=== PATIENT | female | born 1935 | race American Indian/Alaskan Native ===

== ENCOUNTER 2017-02-14 15:58 | Emergency (ER) | payer MEDICARE ==
[2017-02-14 16:38] VITALS: O2SAT 100
--- NOTE | 2017-02-14 17:56 | C.PDOC ---
History Of Present Illness 81 year old patient, with a past medical history of hypertension and diabetes, presents to the ED complaining of pain to her right arm pain after a fall prior to arrival. Patient was on a school playground picking up her grand kids when someone bumped into her from the back. Patient fell on her right side. She has some left knee pain, but has been able to ambulate with her cane as she normally does. Patient denies any head injury, abdominal pain, neck pain, back pain, chest pain, nausea, or vomiting. - HPI Time Seen by Provider: 02/14/17 16:07 Chief Complaint (Nursing): Trauma History Per: Patient History/Exam Limitations: no limitations Onset/Duration Of Symptoms: Mins (prior to arrival) Severity: Mild Pain Scale Rating Of: 3 Recent travel outside of the [place]: No Past Medical History Reviewed: Historical Data, Nursing Documentation, Vital Signs Vital Signs: Last Vital Signs Temp 98 F 02/14/17 16:32 Pulse 80 02/14/17 16:32 Resp 20 02/14/17 16:32 BP 141/65 02/14/17 16:32 Pulse Ox 100 02/14/17 18:22 - Medical History PMH: Diabetes, HTN Surgical History: Cholecystectomy Family History: States: Unknown Family Hx - Social History Hx Tobacco Use: No Hx Alcohol Use: No Hx Substance Use: No - Immunization History Hx Tetanus Toxoid Vaccination: Yes Hx Influenza Vaccination: Yes Hx Pneumococcal Vaccination: Yes Review Of Systems Except As Marked, All Systems Reviewed And Found Negative. Cardiovascular: Negative for: Chest Pain Gastrointestinal: Negative for: Nausea, Vomiting, Abdominal Pain Musculoskeletal: Negative for: Neck Pain, Back Pain Neurological: Negative for: Other (head injury) Physical Exam - Physical Exam Appears: Non-toxic, No Acute Distress, Other (Kyphosis) Skin: Warm, Dry Head: Atraumatic, Normacephalic Neck: Normal ROM, No Midline Cervical Tenderness, Supple Chest: Symmetrical Cardiovascular: Rhythm Regular Respiratory: Normal Breath Sounds, No Accessory Muscle Use, No Rales, No Rhonchi , No Wheezing Gastrointestinal/Abdominal: Soft, No Tenderness Back: Normal Inspection, No CVA Tenderness Extremity: Normal ROM, Tenderness (left knee; consistent with arthritis), No Deformity, No Swelling, Other (tenderness to right humerus and elbow) Neurological/Psych: Oriented x3, Normal Speech, Normal Cognition Gait: With Assistance ED Course And Treatment O2 Sat by Pulse Oximetry: 100 (room air) Pulse Ox Interpretation: Normal Progress Note: Plan: -Right elbow x-ray. -Right humerus x-ray. -Tylenol Disposition Counseled Patient/Family Regarding: Studies Performed, Diagnosis - Disposition Disposition: HOME/ ROUTINE Disposition Time: 18:21 Condition: STABLE Additional Instructions: follow up with your doctor. return to the Emergency Department with any further concerns Instructions: Contusion in Adults (ED) - POA Present On Arrival: None - Clinical Impression Clinical Impression: Contusion - Scribe Statement The provider has reviewed the documentation as recorded by the Scribe Joanie Coker Provider Attestation: All medical record entries made by the Scribe were at my direction and personally dictated by me. I have reviewed the chart and agree that the record accurately reflects my personal performance of the history, physical exam, medical decision making, and the department course for this patient. I have also personally directed, reviewed, and agree with the discharge instructions and disposition.
--- NOTE | 2017-02-14 18:23 | RAD ---
PROCEDURE: Radiographs of the right humerus. HISTORY: fall COMPARISON: None available. FINDINGS: BONES: No acute displaced fracture. Osseous demineralization. Degenerative changes. SOFT TISSUES: Unremarkable. No evidence of radiopaque foreign body. OTHER FINDINGS: None. IMPRESSION: No acute displaced fracture identified. Osseous demineralization. Degenerative changes.
--- NOTE | 2017-02-14 18:24 | RAD ---
PROCEDURE: Radiographs of the right elbow. HISTORY: fall COMPARISON: None available. FINDINGS: BONES: Osseous demineralization. Degenerative changes. No acute displaced fracture identified. Well corticated ossific density adjacent to the lateral distal humerus, consistent with chronic finding. JOINTS: No dislocation. SOFT TISSUES: Mild soft tissue swelling. No evidence of radiopaque foreign body. JOINT EFFUSION: No significant joint effusion. OTHER FINDINGS: None IMPRESSION: Soft tissue swelling. No acute displaced fracture identified. If high clinical index of suspicion for occult fracture, cross-sectional imaging suggested. Osseous demineralization. Degenerative changes.
[2017-02-14 18:41] VITALS: BP 136/64; PULSE 79; RESP 18; TEMP 98.1
== END 2017-02-14 18:40 | disposition home or self-care (01) ==
LOC: C.ER 15:58
DX: S40.021A Contusion of right upper arm, initial encounter (principal); W03.XXXA Other fall on same level due to collision with another person, initial encounter; Y92.219 Unspecified school as the place of occurrence of the external cause

== ENCOUNTER 2017-06-08 22:49 | Emergency (ER) | payer MEDICARE ==
[2017-06-08 23:08] VITALS: RESP 17; TEMP 98.7
[2017-06-08 23:17] LABS: BASO % 0.2 % (0.0-2.0); EOS % 0.4 % (0.0-4.0); HEMATOCRIT 26.8 % (34.0-47.0); LYMPH % 18.2 % (20.0-40.0); MEAN CELL VOLUME 80.3 fL (81.0-99.0); MEAN CORPUSCULAR HEMOGLOBIN 26.9 pg (27.0-31.0); MEAN CORPUSCULAR HGB CONC 33.5 g/dL (33.0-37.0); MEAN PLATELET VOLUME 7.8 fL (7.2-11.7); MONO # 0.9 K/uL (0.0-0.8); MONO % 16.1 % (0.0-10.0); NRBC % 0.1 % (0.0-2.0); RED CELL DISTRIBUTION WIDTH 14.4 % (11.5-14.5); WHITE BLOOD COUNT 5.8 K/uL (4.8-10.8)
--- NOTE | 2017-06-08 23:18 | C.PDOC ---
History Of Present Illness 81 year old female with a Hx of diabetes, currently on metformin and glucozide, presents to the ER after being found hypoglycemic with a blood sugar of 35. Patient states she has not been feeling well over the past few days, she reports having chills on and today she had a questionable syncopal episode, felt nauseated, lightheaded, and noticed some slurring of her speech. Patient called medics for an evaluation and was found awake and responsive, but with poor blood sugar. Patient was given 1/2 an amp of d50 and on arrival patient's blood sugar is 135. Patient states she feels better and notes she did not eat today due to lack of appetite but did take her medications today. Denies SOB, chest pain, headache, or abdominal pain. Time Seen by Provider: 06/08/17 23:04 Chief Complaint (Nursing): Altered Mental Status History Per: Patient History/Exam Limitations: None Onset/Duration Of Symptoms: Hrs Current Symptoms Are (Timing): Still Present Usual Baseline: Alert Oriented Exacerbating Factor(s): Unknown Speech Is: Normal Recent travel outside of the [facility]: No Associated Symptoms: denies: Fever, Chills, Chest Pain, Headache, Vomiting, Dyspnea, Syncope Past Medical History Reviewed: Historical Data, Nursing Documentation, Vital Signs Vital Signs: Last Vital Signs Temp 98.7 F 06/08/17 23:06 Pulse 81 06/08/17 23:06 Resp 17 06/08/17 23:06 BP 117/64 06/08/17 23:06 Pulse Ox 99 06/08/17 23:24 - Medical History PMH: Diabetes, HTN Surgical History: Cholecystectomy Family History: States: Unknown Family Hx - Social History Hx Tobacco Use: No Hx Alcohol Use: No Hx Substance Use: No - Immunization History Hx Tetanus Toxoid Vaccination: Yes Hx Influenza Vaccination: Yes Hx Pneumococcal Vaccination: Yes Review Of Systems Constitutional: Negative for: Fever, Chills Eyes: Negative for: Vision Change Cardiovascular: Positive for: Light Headedness. Negative for: Chest Pain, Palpitations Respiratory: Negative for: Shortness of Breath Gastrointestinal: Positive for: Nausea. Negative for: Vomiting, Abdominal Pain , Diarrhea Genitourinary: Negative for: Dysuria, Hematuria Neurological: Negative for: Weakness, Numbness, Headache, Dizziness Physical Exam - Physical Exam Appears: Non-toxic, No Acute Distress Skin: Normal Color, Warm, Dry Head: Atraumatic, Normacephalic Oral Mucosa: Moist Neck: Normal, Supple Chest: Symmetrical, No Tenderness Cardiovascular: Rhythm Regular, No Murmur Respiratory: Normal Breath Sounds, No Rales, No Rhonchi, No Wheezing Gastrointestinal/Abdominal: Soft, No Tenderness Neurological/Psych: Oriented x3, Normal Speech, Normal Cognition, Other (No focal deficits) ED Course And Treatment - Laboratory Results Result Diagrams: 06/08/17 23:14 06/08/17 23:14 Lab Interpretation: Abnormal (BUN 18, Cr 1.7, glucose 114, Hgb 9.0) ECG: Interpreted By Me ECG Rhythm: Sinus Rhythm (with LVH) O2 Sat by Pulse Oximetry: 99 (Room air) Pulse Ox Interpretation: Normal Progress Note: Blood work and urinalysis ordered. - Physician Consult Information Time Consulting Physician Contacted: 23:35 Physician Contacted: Anay Long Outcome Of Conversation: Patient instructed to stop her diabetic medications and she will see her in the office in 2 days. Disposition - Disposition Disposition Time: 23:36 Condition: IMPROVED Forms: [employer] (Serbian) - Clinical Impression Clinical Impression: Hypoglycemia associated with diabetes - Scribe Statement The provider has reviewed the documentation as recorded by the Scribe Jack Chamberlain All medical record entries made by the Scribe were at my direction and personally dictated by me. I have reviewed the chart and agree that the record accurately reflects my personal performance of the history, physical exam, medical decision making, and the department course for this patient. I have also personally directed, reviewed, and agree with the discharge instructions and disposition. Physician Patient Turnover Patient Signed Over To: Ciro Florez Handoff Comments: pending labs
[2017-06-08 23:27] LABS: POTASSIUM 3.8 mmol/L (3.6-5.2)
[2017-06-08 23:29] LABS: BILIRUBIN,TOTAL 0.7 mg/dL (0.2-1.3); TOTAL PROTEIN 7.5 g/dL (6.3-8.3)
[2017-06-08 23:30] LABS: CALCIUM 8.4 mg/dl (8.6-10.4)
[2017-06-09 01:04] VITALS: BP 132/65; PULSE 79; O2SAT 97
--- NOTE | 2017-06-19 18:47 | CARD ---
APPROVED REPORT EKG Measurement Heart [id number] <Conclusion> Normal sinus rhythm Minimal voltage criteria for LVH, may be normal variant Borderline ECG
== END 2017-06-09 01:03 | disposition home or self-care (01) ==
LOC: C.ER 22:49
DX: E11.649 Type 2 diabetes mellitus with hypoglycemia without coma (principal); Z79.84 Long term (current) use of oral hypoglycemic drugs

== ENCOUNTER 2018-02-06 14:09 | Emergency (ER) | payer MEDICARE ==
[2018-02-06 14:16] VITALS: PULSE 80; RESP 18; TEMP 98.5; O2SAT 100
--- NOTE | 2018-02-06 14:33 | C.PDOC ---
History Of Present Illness 82-YEAR-OLD FEMALE, PRESENTS TO THE EMERGENCY DEPARTMENT WITH COMPLAINTS OF HAVING RIGHT SECOND TOE PAIN ONGOING FOR "A LONG TIME/" PS SOMETIMES IT HURTS W MOVEMENT. SHE DENIES WORSENING SX, DENIES TRAUMA EXAM SHE HAS A THICKENED TOENAIL, R SECOND TOE Time Seen by Provider: 02/06/18 14:30 Chief Complaint (Nursing): Lower Extremity Problem/Injury History Per: Patient History/Exam Limitations: no limitations Onset/Duration Of Symptoms: Days Past Medical History Reviewed: Historical Data, Nursing Documentation, Vital Signs Vital Signs: Last Vital Signs Temp 98.5 F 02/06/18 14:13 Pulse 80 02/06/18 14:13 Resp 18 02/06/18 14:13 BP 158/72 H 02/06/18 14:13 Pulse Ox 100 02/06/18 15:17 - Medical History PMH: Diabetes, HTN Surgical History: Cholecystectomy Family History: States: No Known Family Hx - Social History Hx Tobacco Use: No Hx Alcohol Use: No Hx Substance Use: No - Immunization History Hx Tetanus Toxoid Vaccination: Yes Hx Influenza Vaccination: Yes Hx Pneumococcal Vaccination: Yes Review Of Systems Constitutional: Negative for: Fever Musculoskeletal: Positive for: Other (RIGHT TOE) Neurological: Negative for: Weakness, Numbness Physical Exam - Physical Exam Appears: Well, Non-toxic, No Acute Distress Skin: Normal Color, Warm, Dry, No Rash Extremity: Capillary Refill (<2 SECONDS), No Deformity, Other (THICKENED TOENAIL TO RIGHT SECOND TOE) Pulses: Left Dorsalis Pedis: Normal, Right Dorsalis Pedis: Normal Neurological/Psych: Oriented x3, Normal Speech ED Course And Treatment O2 Sat by Pulse Oximetry: 100 (RA) Pulse Ox Interpretation: Normal Progress - Re-Evaluation Re-evaluation Note: 02/06/18 14:41 d/w PODIATRY RESIDENT, WILL EVALUATE PT IN ED. 02/06/18 16:04 S/P EVAL, CLEARED FOR OUTPT FU - Data Reviewed Data Reviewed: Diagnostic imaging Disposition Counseled Patient/Family Regarding: Studies Performed, Diagnosis, Need For Followup - Disposition Referrals: Elissa Baca DPM [Staff Provider] - Disposition: HOME/ ROUTINE Disposition Time: 16:06 Condition: GOOD Instructions: Hammer Toe (DC) Forms: [employer] (Persian) - Clinical Impression Clinical Impression: Chronic toe pain, right foot - Scribe Statement The provider has reviewed the documentation as recorded by the Scribe (Kanika Dumont) All medical record entries made by the Scribe were at my direction and personally dictated by me. I have reviewed the chart and agree that the record accurately reflects my personal performance of the history, physical exam, medical decision making, and the department course for this patient. I have also personally directed, reviewed, and agree with the discharge instructions and disposition.
--- NOTE | 2018-02-06 15:05 | RAD ---
PROCEDURE: Right Foot Radiographs. HISTORY: R 2ND TOE PAIN COMPARISON: None. FINDINGS: BONES: Hallux valgus with bunion. 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 Flexion deformity of 2nd through 5th distal interphalangeal joints. SOFT TISSUES: Normal. OTHER FINDINGS: None. IMPRESSION: No acute fracture. Flexion deformity 2nd through 5th digits. Bunion and hallux valgus. 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
[2018-02-06 16:43] VITALS: BP 150/72
== END 2018-02-06 16:43 | disposition home or self-care (01) ==
LOC: C.ER 14:09
DX: G89.29 Other chronic pain (principal); M79.674 Pain in right toe(s)

== ENCOUNTER 2018-10-06 10:51 | Emergency (ER) | payer MEDICARE ==
[2018-10-06 11:00] VITALS: BP 159/80; PULSE 84; RESP 18; TEMP 99; O2SAT 99
--- NOTE | 2018-10-06 11:23 | C.PDOC ---
History Of Present Illness 82 y/o female presents to the ER complaining of left neck pain which began in the morning today. As per family, patient was fell asleep while she was sitting. Patient denies having direct trauma,fall, midline bony tenderness, dental/ jaw pain, CP, and SOB. Time Seen by Provider: 10/06/18 11:08 Chief Complaint (Nursing): Back Pain History Per: Patient, Family History/Exam Limitations: no limitations Onset/Duration Of Symptoms: Hrs Current Symptoms Are (Timing): Still Present Severity: Moderate Past Medical History Reviewed: Historical Data, Nursing Documentation, Vital Signs Vital Signs: Last Vital Signs Temp 99 F 10/06/18 10:55 Pulse 84 10/06/18 10:55 Resp 18 10/06/18 10:55 BP 159/80 H 10/06/18 10:55 Pulse Ox 99 10/06/18 10:55 - Medical History PMH: Diabetes, HTN Surgical History: Cholecystectomy Family History: States: No Known Family Hx - Social History Hx Tobacco Use: No Hx Alcohol Use: No Hx Substance Use: No - Immunization History Hx Tetanus Toxoid Vaccination: Yes Hx Influenza Vaccination: Yes Hx Pneumococcal Vaccination: Yes Review Of Systems Except As Marked, All Systems Reviewed And Found Negative. Constitutional: Negative for: Fever, Chills Cardiovascular: Negative for: Chest Pain Respiratory: Negative for: Shortness of Breath Musculoskeletal: Positive for: Neck Pain Physical Exam - Physical Exam Appears: Non-toxic, No Acute Distress Skin: Normal Color, Warm, Dry Head: Atraumatic, Normacephalic Eye(s): bilateral: Normal Inspection Nose: Normal Oral Mucosa: Moist Throat: Normal, No Erythema, No Exudate Neck: Normal ROM, No Midline Cervical Tenderness, No Paracervical Tenderness, Other (tenderness over sternocleidomastoid muscle) Chest: Symmetrical Cardiovascular: Rhythm Regular Respiratory: Normal Breath Sounds, No Rales, No Rhonchi, No Wheezing Gastrointestinal/Abdominal: Soft, No Tenderness, No Guarding, No Rebound Neurological/Psych: Oriented x3, Normal Speech ED Course And Treatment O2 Sat by Pulse Oximetry: 99 (RA) Pulse Ox Interpretation: Normal Reassessment Condition: Improved Medical Decision Making Medical Decision Making: Plan: --Tylenol PO Updates: Patient has been discharged and instructed to follow up with PMD tomorrow. Disposition Counseled Patient/Family Regarding: Diagnosis, Need For Followup, Rx Given - Disposition Referrals: Anay Long MD [Staff Provider] - Disposition: HOME/ ROUTINE Disposition Time: 11:22 Condition: STABLE Additional Instructions: FOLLOW UP WITH PMD TOMORROW FOR RE-EVALUATION. IF SYMPTOMS GET WORSE OR ANY NEW CONCERNING SYMPTOMS DEVELOP RETURN TO ED. Prescriptions: Ibuprofen [Motrin] 1 tab PO Q6H PRN #15 tab PRN Reason: Pain Instructions: Neck Pain Forms: [employer] ([place]), General Discharge Instructions - Clinical Impression Clinical Impression: Neck pain on left side - PA / MANAGER PLAN / Resident Statement MD/DO has reviewed & agrees with the documentation as recorded. - Scribe Statement The provider has reviewed the documentation as recorded by the Jermainibjeffrey Abdi Provider Attestation All medical record entries made by the Jermainibe were at my direction and personally dictated by me. I have reviewed the chart and agree that the record accurately reflects my personal performance of the history, physical exam, medical decision making, and the department course for this patient. I have also personally directed, reviewed, and agree with the discharge instructions and disposition.
== END 2018-10-06 11:33 | disposition home or self-care (01) ==
LOC: C.ER 10:51
DX: M54.2 Cervicalgia (principal); E11.9 Type 2 diabetes mellitus without complications; I10 Essential (primary) hypertension